=== PATIENT | male | born 1985 | race Caucasian/White ===

== ENCOUNTER 2022-11-20 18:33 | Emergency (ER) | payer OTHER, SELFPAY ==
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
[2022-11-20 18:45] VITALS: BP 140/82; PULSE 150; BMI 25.8
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
== END 2022-11-20 19:11 | disposition home or self-care (01) ==
PROVIDERS: Emergency Provider Student in an Organized Health Care Education/Training Program
DX: T75.4XXA Electrocution, initial encounter (principal); Y35.833A Legal intervention involving a conducted energy device, suspect injured, initial encounter; Y93.9 Activity, unspecified; Y92.9 Unspecified place or not applicable; Y99.9 Unspecified external cause status
CPT/HCPCS: 99282; 99284

== ENCOUNTER 2024-08-17 18:24 | Emergency (ER) | payer OTHER, SELFPAY ==
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
[2024-08-17 18:33] VITALS: BP 100/76; PULSE 68; RESP 18
[2024-08-17 18:37] VITALS: BP 100/76; PULSE 83; RESP 18; O2SAT 100
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
[2024-08-17 18:50] VITALS: BP 100/76; PULSE 83; RESP 14; O2SAT 100; BMI 35.0
--- NOTE | 2024-08-17 18:50 | ECG_ITS ---
Test Reason : altered mental status Blood Pressure : */* mmHG Vent. Rate : 66 BPM Atrial Rate : 66 BPM P-R Int : 148 ms QRS Dur : 100 ms QT Int : 430 ms P-R-T Axes : 68 41 36 degrees QTcB Int : 450 ms Normal sinus rhythm Normal ECG No previous ECGs available Referred By: Humberto Perry Electronically Signed By: TAMIA ANAYA
[2024-08-17 19:12] LABS: MANUAL DIFF FLAG NO
[2024-08-17 19:23] LABS: Basophils Percent Auto 0.6 % (0-2); Eosinophils Absolute Auto 0.2 X10*3/uL (0.0-0.4); Eosinophils Percent Auto 3.9 % (0-4); Hematocrit 40.6 % (42.0-52.0); Hemoglobin 13.8 g/dl (14.0-18.0); Imm Gran Abs Auto 0.01 X10*3/uL (0.00-0.03); Imm Gran Pct Auto 0.2 % (0.0-0.4); Lymphocytes Absolute Auto 1.8 X10*3/uL (1.2-4.9); Lymphocytes Percent Auto 36.2 % (20-40); Mean Corpuscular Volume 79.3 fL (80.0-98.0); Mean Platelet Volume 10.2 fL (9.4-12.4); Monocytes Absolute Auto 0.3 X10*3/uL (0.1-1.2); Monocytes Percent Auto 6.4 % (2-11); Neutrophils Absolute Auto 2.6 x10*3/uL (2.0-8.3); Neutrophils Percent Auto 52.7 % (45-73); Platelet Count 239 X10*3/uL (160-400); Red Blood Count 5.12 X10*6/uL (4.60-5.80); Red Cell Distribution Width 13.7 % (11.0-16.0); White Blood Count 4.8 X10*3/uL (4.8-10.8)
[2024-08-17 19:26] LABS: Ethanol 283 mg/dL
[2024-08-17 19:30] LABS: Alanine Aminotransferase 27 U/L (0-40); Albumin Level 4.3 g/dL (3.5-5.0); Alkaline Phosphatase 64 U/L (39-117); Anion Gap 14 (12-20); Aspartate Amino Transferase 31 U/L (5-37); Bilirubin Direct 0.1 mg/dL (0.0-0.5); Bilirubin Total 0.3 mg/dL (0.0-1.0); Blood Urea Nitrogen 11 mg/dL (9-16); Calcium 8.6 mg/dL (8.4-10.2); Carbon Dioxide 23 mmol/L (22-29); Chloride 110 mmol/L (96-108); Creatinine Clr Calc Pharmacy 124.6; Estimated Glomerular Filt Rate > 60; Glucose Random 110 mg/dL (60-115); Potassium 3.5 mmol/L (3.3-5.1); Sodium 143 mmol/L (135-145); Total Protein 6.7 g/dL (6.5-8.0)
[2024-08-17 19:35] LABS: Acetaminophen LAB < 3 mcg/mL (<30); Salicylate < 5.0 mg/dL (15-30)
[2024-08-17] MEDS: Midazolam HCl 5 MG/ML VIAL 8 MG IM (20:35)
--- NOTE | 2024-08-17 20:37 | PC.NURSE ---
Pt medicated with 8mg of versed IM prior to ct scan as pt is intoxicated and not following commands for ct.
[2024-08-17 20:44] VITALS: BP 104/83; PULSE 92
[2024-08-17] MEDS: ondansetron HCL 4 MG/2 ML VIAL IVPUSH (21:09)
--- NOTE | 2024-08-17 21:13 | PC.NURSE ---
RN was called into CT stat d/t emesis. pt brought back to bedside. MD at [facility] suctioning. IV established. pt medicated with zofran as per verbal order. IV fluids hung. no respiratory distress. Vs remain WNL. Hygiene care and complete bed change provided. monitoring is ongoing.
[2024-08-17] MEDS: 0.9 % Sodium Chloride 1,000 ML 999 ML IV (21:15)
[2024-08-17 21:42] VITALS: BP 116/78; PULSE 81; RESP 18; TEMP 36.3; O2SAT 100
[2024-08-17] MEDS: Haloperidol Lactate 5 MG/ML VIAL IVPUSH (22:34)
[2024-08-17] MEDS: diazePAM 10 MG/2 ML CARTRIDGE 2.5 MG IVPUSH (22:34)
[2024-08-18 00:16] VITALS: BP 98/64; PULSE 85; RESP 16; TEMP 36.6; O2SAT 98
[2024-08-18 00:18] VITALS: BP 98/64; PULSE 85; RESP 16; TEMP 36.6; O2SAT 98
== END 2024-08-18 00:34 ==
PROVIDERS: Emergency Provider Emergency Medicine; PCP Internal Medicine
DX: R41.82 Altered mental status, unspecified (principal); E07.9 Disorder of thyroid, unspecified; R45.1 Restlessness and agitation; F10.920 Alcohol use, unspecified with intoxication, uncomplicated; Y90.8 Blood alcohol level of 240 mg/100 ml or more
CPT/HCPCS: 36415; 70450; 72125; 80048; 80076; 80143; 80179; 80307; 85025; 93005; 96361; 96372; 96374; 96375; 99285; J1630; J2250; J2405; J3360

== ENCOUNTER → 2024-08-17 18:49 | Outpatient (BNV) | payer OTHER, SELFPAY | PROVIDERS: Emergency Provider Emergency Medicine; Visit Provider Specialist | DX: E04.1 Nontoxic single thyroid nodule (principal); R41.82 Altered mental status, unspecified | CPT/HCPCS: 70450; 72125 ==

== ENCOUNTER → 2024-08-17 18:50 | Outpatient (BNV) | payer OTHER, SELFPAY | PROVIDERS: Emergency Provider Emergency Medicine; PCP Internal Medicine; Visit Provider Internal Medicine | DX: R41.82 Altered mental status, unspecified (principal) | CPT/HCPCS: 93010 ==